=== PATIENT | male | born 1960 | race Caucasian/White ===

== ENCOUNTER 2017-11-10 05:12 | Day surgery (SDC) | payer BC ==
[~2017-11-10] VITALS: Ht 190.5 cm; Wt 121.1 kg
[~2017-11-10 05:12] MED LIST: ADVAIR 250/501 DISK IH; ALBUTEROL17 G1 IH; ASPIR 8181 M1 PO; ASPIRIN E.C.81 M1 PO; Advair HFA 115/21 IH; DELTASONE20 MG PO; LIDODERM 5% P1 PATCH TD; Levaquin PO; MEN'S MULTI-VI1 EACH PO; MORPHINE S10 MG/5 ML PO; Motrin PO; PACERONE200 M1 PO; PROAIR HFA8.5 GM IH; PROTONIX40 MG PO; Proventil,Ventolin H IH; SINGULAIR10 MG PO; SPIRIVA1 INHALATI IH; TYLENOL EXTRA500 MG PO; Tylenol Extra Streng PO; VIBRAMYCIN100 M2 PO; [UNRECOGNIZED DRUG - OTHER]
[2017-11-10 05:54] VITALS: BP 127/81
[2017-11-10] MEDS ORDERED: NORCO 5/3251 TABLET PO (09:19)
[2017-11-10 11:45] VITALS: BP 109/66
[2017-11-10 15:25] VITALS: BP 120/68
[2017-11-10 16:40] VITALS: BP 115/71
== END 2017-11-10 16:40 | disposition home or self-care (01) ==
LOC: SDC 05:12
PROC: 0WUF4JZ Supplement Abdominal Wall with Synthetic Substitute, Percutaneous Endoscopic Approach (ICD-10-PCS; principal; 2017-11-10)
DX: K43.2 Incisional hernia without obstruction or gangrene (principal); J45.909 Unspecified asthma, uncomplicated; Z79.82 Long term (current) use of aspirin; Z87.891 Personal history of nicotine dependence
CPT/HCPCS: 87641; 93005; C1781; J0131; J0330; J0744; J1100; J1885; J2250; J2405; J2710; J3010; S0020